=== PATIENT | male | born 1965 | race Caucasian/White ===

== ENCOUNTER 2021-08-29 11:34 | Emergency (ER) | payer OTHER, SELFPAY ==
--- NOTE | ~2021-08-29 | XR_ITS ---
EXAMINATION: XR humerus RT EXAM DATE: 08/29/2021 12:04 INDICATION: Fall, week ago, pain to the proximal of rt humerus. TECHNIQUE: 2 orthogonal projections of the right humerus. There is no prior study for comparison. FINDINGS: There is mild to moderate right shoulder primary osteoarthritis. There are no acute right h umerus fractures or dislocations identified. There is no subcutaneous gas. The soft tissue is unrem arkable. There are no radiopaque foreign bodies. IMPRESSION: Right humerus exam without acute osseous findings. Reviewed, dictated and finalized at location A.
--- NOTE | 2021-08-29 11:51 | ED.UPPEXIN ---
HPI - Extremity Injury (Upper) General Chief Complaint: Extremity Injury, Upper Stated Complaint: Right shoulder Pain Time Seen by Provider: 08/29/21 11:51 Source: patient Mode of arrival: ambulatory Limitations: no limitations History of Present Illness HPI narrative: 56-year-old male presents with complaint of pain to right upper arm for 1 week. Reports that at work about 1 week ago he was getting out of truck and fell and landed down on right elbow, which he thinks jammed up into his shoulder. Reports no pain at rest but when he begins to lift his arm above his head he has pain to his right right humerus. Distal neurovascularly intact. Has been off work for 1 week to rest arm but no improvement to range of motion. All systems reviewed and negative except as noted above. Related Data Home Medications Medication Instructions Recorded Confirmed No Home Medications 08/29/21 08/29/21 Allergies Allergy/AdvReac Type Severity Reaction Status Date / Time No Known Allergies Allergy Verified 08/29/21 11:56 Review of Systems Review of Systems: CONSTITUTIONAL: Denies fever, chills, or sweats. EYES: Denies visual changes, redness, or discharge. ENT: Denies rhinorrhea, congestion, sore throat, or otalgia. CARDIOVASCULAR: Denies chest pain, palpitations, or edema. RESPIRATORY: Denies cough or dyspnea. GASTROINTESTINAL: Denies abdominal pain, nausea, vomiting, or diarrhea. GENITOURINARY: Denies dysuria or hematuria. SKIN: Denies rash or itching. MUSCULOSKELETAL: Denies back pain, joint pain, or myalgia. Reports pain to right upper arm. NEUROLOGIC: Denies headache, numbness, or weakness. PSYCHIATRIC: Denies anxiety or depression. All other systems reviewed are negative, except as documented in HPI. PMFSH Comments At time of signature, agree with nursing past medical, surgical, social and family history. There is no relevant family history pertinent to the presenting complaint. Exam Narrative: GENERAL: This is a well-nourished, well-developed patient, in no apparent distress. HEAD: normocephalic, atraumatic. EYES: PERRL. Sclera clear/white. Vision is grossly intact. EARS: External ears normal NOSE: External nose normal NECK: Neck supple, non-tender without lymphadenopathy, masses or thyromegaly. CARDIOVASCULAR: Regular rate and rhythm without murmurs, gallops, or rubs. RESPIRATORY: Clear to auscultation. Breath sounds equal bilaterally. No wheezes, rales, or rhonchi. SKIN: warm, Dry, intact with no suspicious lesions or rash, good texture and turgor. NEURO: awake, alert, and oriented to person, place and time. There were no obvious focal neurologic abnormalities. EXTREMITIES: Tender on palpation to proximal aspect R humerus with mild swelling. ROM decreased, unable to lift above 60 degrees. Unable to perform drop arm test to evaluate rotator cuff. Course Course Level of Care: Express Care Visit Vital Signs Vital signs: Vital Signs Temperature 36.8 C 08/29/21 11:52 Pulse Rate 80 08/29/21 11:52 Respiratory Rate 18 08/29/21 11:52 Blood Pressure 148/89 H 08/29/21 11:52 Pulse Oximetry 98 08/29/21 11:52 Temperature 36.8 C 08/29/21 11:52 Pulse Rate 80 08/29/21 11:52 Respiratory Rate 18 08/29/21 11:52 Blood Pressure 148/89 H 08/29/21 11:52 Pulse Oximetry 98 08/29/21 11:52 Reviewed MDM - Extremity Injury (Upper) MDM Narrative Medical decision making narrative: Discussed x-ray results with patient. No fracture noted but he does have a significant decrease in his range of motion. Recommend that he follows up with his primary care physician or orthopedics for an outpatient MRI. He was placed in a sling by RN. He voiced comfort while wearing sling. Patient is aware of diagnosis, understands and agrees to treatment plan. Anticipatory guidance given. Patient agrees to follow-up as directed and is aware of reasons to seek care at the emergency department. Portions of this record may have bee
[2021-08-29 11:52] VITALS: BP 148/89; PULSE 80; RESP 18; TEMP 36.8; O2SAT 98
== END 2021-08-29 12:30 | disposition home or self-care (01) ==
PROVIDERS: Emergency Provider Nurse Practitioner Family; PCP Internal Medicine
DX: S43.401A Unspecified sprain of right shoulder joint, initial encounter (principal); V48.4XXA Person boarding or alighting a car injured in noncollision transport accident, initial encounter; M79.621 Pain in right upper arm
CPT/HCPCS: 73060; 99213; A4565; G0463

== ENCOUNTER 2021-11-25 08:53 | Emergency (ER) | payer OTHER, SELFPAY ==
--- NOTE | 2021-11-25 08:57 | ED.SKABFB ---
HPI - Skin/Abscess/Foreign Bdy General Chief complaint: Skin/Abscess/Foreign Body Stated complaint: Insect Bite Time Seen by Provider: 11/25/21 09:20 Source: patient and RN notes reviewed Mode of arrival: ambulatory Limitations: no limitations History of Present Illness HPI narrative: 56-year-old male presents concern for possible insect bite. Reports under his left arm he has a painful, red area. Reports symptoms started yesterday with noting itchiness to his entire body with some redness. Reports he then noted a painful area under his left. He reports he took Benadryl and hydrocortisone cream. He reports feeling a headache and an episode of slight shortness of breath yesterday. He did not feel himself get stung by anything, he is not sure what may have bit him or stung him. He denies current shortness of breath. MD complaint: insect bite/sting Related Data Home Medications Medication Instructions Recorded Confirmed rosuvastatin 10 mg tablet 10 mg PO DAILY 11/25/21 11/25/21 Allergies Allergy/AdvReac Type Severity Reaction Status Date / Time No Known Allergies Allergy Verified 11/25/21 09:13 Review of Systems Review of Systems: CONSTITUTIONAL: Denies malaise, chills, sweats, or fever. EYES: Denies redness, or discharge. ENT: Denies swollen lips, swollen tongue CARDIOVASCULAR: Denies chest pain, palpitations, or edema. RESPIRATORY: Denies cough. Reports 1 episode dyspnea. SKIN: Reports generalized itchiness, redness. Reports painful slightly swollen itchy area under the left arm MUSCULOSKELETAL: Denies joint pain or myalgia. NEUROLOGIC: Reports headache. All systems reviewed & are unremarkable except as noted in HPI and below PMFSH Comments At time of signature, agree with nursing past medical, surgical, social and family history. There is no relevant family history pertinent to the presenting complaint Exam Narrative: GENERAL: Nontoxic. And in no acute distress. HEAD: Normocephalic, atraumatic. EYES: PERRLA, conjunctivae clear ENT: Mucous membranes moist. No lip swelling, tongue swelling, soft palate edema NECK: Supple. CHEST: Clear to auscultation. Breath sounds equal. No respiratory distress. HEART: Regular rate and rhythm. SKIN: Warm, dry, erythema without rash noted to the upper extremities and torso. 2 cm area of flat discoloration, slight ecchymosis with serous filled papule, surrounded by approximately 5 cm area of friction paint machine tender colored discoloration and another pinpoint papule. This entire area is surrounded by approximately 15 cm of erythema with slight induration and warmth. No fluctuation noted NEURO: Alert and oriented x3. PSYCH: Normal mood and affect Course Course Emergency Course: Patient is aware of diagnosis, understands and agrees to treatment plan. Anticipatory guidance given. Patient agrees to follow-up as directed and is aware of reasons to seek care at the emergency department. Portions of this record may have been created with voice recognition software Level of Care: Express Care Visit Reevaluation(s) Reevaluation #1: Patient reports effects of Solu-Medrol are starting, he feels mild relief to the generalized itching. Date: 11/25/21 Time: 09:58 Vital Signs Vital signs: Reviewed. MDM - Skin/Abscess/Foreign Bdy MDM Narrative Medical decision making narrative: Does not appear at this time to be erythema multiforme, bullous, SJS, TEN; no evidence at this time to suggest RMSF, endocarditis or Lyme disease; patient looks well, nontoxic and is tolerating oral intake; no neurologic signs or symptoms; no headache, photophobia or neck pain; afebrile; appropriate for initial outpatient treatment; discussed the importance of follow-up, patient agrees; question, viral exanthema, contact dermatitis, allergic dermatitis, eczema, urticaria, insect bite, abscess. no soft palate or uvula edema, no tongue, lip edema or other mucosal involvement, no respiratory compromise, no stridor, no wheezi
[2021-11-25 09:04] VITALS: BP 135/90; PULSE 98; RESP 20; TEMP 37; O2SAT 100
[2021-11-25] MEDS: methylPREDNISolone SOD SUCC 125 MG VIAL IM (09:40)
== END 2021-11-25 10:00 | disposition home or self-care (01) ==
PROVIDERS: Emergency Provider Nurse Practitioner; PCP Internal Medicine
DX: S40.862A Insect bite (nonvenomous) of left upper arm, initial encounter (principal); S40.861A Insect bite (nonvenomous) of right upper arm, initial encounter; S20.362A Insect bite (nonvenomous) of left front wall of thorax, initial encounter; W57.XXXA Bitten or stung by nonvenomous insect and other nonvenomous arthropods, initial encounter; E78.00 Pure hypercholesterolemia, unspecified
CPT/HCPCS: 96372; 99213; G0463; J2930

== ENCOUNTER 2022-06-07 09:20 | Emergency (ER) | payer OTHER, SELFPAY ==
[2022-06-07 09:44] VITALS: BP 171/98; PULSE 80; RESP 16; TEMP 36.7; O2SAT 98
--- NOTE | 2022-06-07 10:52 | ED.URI ---
HPI - URI/Sore Throat General Chief Complaint: Upper Respiratory Infection Stated Complaint: uri Time Seen by Provider: 06/07/22 09:23 Source: patient and family Mode of arrival: ambulatory Limitations: no limitations History of Present Illness HPI Narrative: 56-year-old male presents to [facility] with complaints of body aches, chills, headache, diarrhea and cough for the past 3 days. Patient has been increasing fluids, taking [id number] ibuprofen and Mucinex with minimal relief. Patient denies sick contacts. Patient denies recent travel. Patient denies shortness of breath, wheezing, nausea, vomiting or diarrhea. MD elicited complaint: fever, rhinorrhea and nasal congestion Onset (ago): day(s) (3) Severity: mild Able to tolerate fluids by mouth: Yes Treatments prior to arrival: acetaminophen, ibuprofen and cold medicine Related Data Home Medications Medication Instructions Recorded Confirmed rosuvastatin 10 mg tablet 10 mg PO DAILY 11/25/21 06/07/22 Allergies Allergy/AdvReac Type Severity Reaction Status Date / Time No Known Allergies Allergy Verified 06/07/22 10:11 Review of Systems Constitutional: Constitutional: Reports chills, Reports fatigue and Reports fever(s) ENT: Denies dizziness, Denies epistaxis, Reports nasal congestion and Denies sore throat Cardiovascular: Cardiovascular: Denies chest pain Respiratory: Respiratory: Reports cough, Denies dyspnea and Denies wheezing Gastrointestinal: Gastrointestinal: Denies diarrhea, Denies nausea and Denies vomiting Integumentary/Breasts: Skin/Breast: Denies rash Neurologic: Denies vertigo and Denies dizziness PMFSH Past Medical History Medical History (Updated 06/07/22 @ 10:56 by Yary Serrano APRN) Hyperlipidemia Comments At time of signature, I agree with nursing past medical, surgical, social and family history. There is no relevant family history pertinent to the presenting complaint. Exam Const: General: healthy appearing, no acute distress and alert Nutritional Appearance: well nourished Orientation/consciousness: patient oriented x3 Limitations: no limitations HENMT: Head: normal to inspection Ears: external ears normal, TM's normal bilaterally and EAC's normal Face/Nose/Sinus: Normal external nose present Face and sinus: normal facial exam Teeth and gingiva: dentition normal Throat: posterior oropharynx normal and uvula midline Eyes: Conjunctivae: conjunctivae normal Neck: Neck: normal visual inspection Resp: Effort & Inspection: normal respiratory effort, not labored and not tachypneic Auscultation: clear to auscultation bilaterally, no crackles, no rales and no rhonchi Cardio: Rate: regular rate Rhythm: regular rhythm Heart sounds: no murmurs Skin: General skin exam: normal color Rashes: no rashes Wounds: no wounds Neuro: Speech: normal speech Gait exam (Neuro): Normal gait present Psych: Affect: normal affect Attitude: cooperative Course Course Level of Care: Express Care Visit Vital Signs Vital signs: Vital Signs Temperature 36.7 C 06/07/22 09:44 Pulse Rate 80 06/07/22 09:44 Respiratory Rate 16 06/07/22 09:44 Blood Pressure 171/98 H 06/07/22 09:44 Pulse Oximetry 98 06/07/22 09:44 Oxygen Delivery Room Air 06/07/22 09:44 Temperature 36.7 C 06/07/22 09:44 Pulse Rate 80 06/07/22 09:44 Respiratory Rate 16 06/07/22 09:44 Blood Pressure 171/98 H 06/07/22 09:44 Pulse Oximetry 98 06/07/22 09:44 Oxygen Delivery Room Air 06/07/22 09:44 MDM - URI/Sore Throat MDM Narrative Medical decision making narrative: no antiviral was prescribed due to symptoms starting 72 hours ago. Patient agrees to monitor symptoms very closely and agrees to proceed to the emergency room if symptoms worsen. Work excuse provided for patient. Instructed patient to take medications as prescribed. Differential Diagnosis Differential diagnosis: Likely otitis media, sinusitis and b
[2022-06-07 11:08] VITALS: BP 140/80
== END 2022-06-07 11:08 | disposition home or self-care (01) ==
PROVIDERS: Emergency Provider Nurse Practitioner Family; PCP Internal Medicine
DX: U07.1 COVID-19 (principal); E78.5 Hyperlipidemia, unspecified
CPT/HCPCS: 87426; 99213; C9803; G0463

== ENCOUNTER 2023-06-15 10:33 | Emergency (ER) | payer OTHER, SELFPAY ==
--- NOTE | ~2023-06-15 | XR_ITS ---
XR knee LT min 4V 06/15/2023 12:17 Indication: Left knee pain and swelling. Procedure: 5 views left knee Comparison: No prior studies for comparison. Findings: There is moderate tricompartment osteoarthritis of the left knee. Small joint effusion. No fracture or traumatic malalignment. No joint effusion. There is chondrocalcinosis. Impression: 1: No acute fracture. 2: Small knee effusion. 3: Moderate tricompartment osteoarthritis. Reviewed, dictated and finalized at location L. [employer] Impression: 1: No acute fracture. 2: Small knee effusion. 3: Moderate tricompartment osteoarthritis.
--- NOTE | 2023-06-15 11:10 | ED.LOWEXIN ---
HPI - Extremity Injury (Lower) General Chief Complaint: Extremity Injury, Lower Stated Complaint: left knee injury Time Seen by Provider: 06/15/23 11:26 Source: patient Mode of arrival: ambulatory Limitations: no limitations History of Present Illness HPI Narrative: Bradley is a 57-year-old male patient presenting to the clinic today with complaints of left knee pain/injury after walking across the carpet on Wednesday evening and he felt a pop in his knee and developed pain. Has tried resting his knee for couple days but today the knee is swollen and more painful. Pain is worse with weight-bearing. Denies any fever or chills. Related Data Home Medications Medication Instructions Recorded Confirmed rosuvastatin 10 mg tablet 100 mg PO DAILY 06/15/23 06/15/23 Allergies Allergy/AdvReac Type Severity Reaction Status Date / Time No Known Allergies Allergy Verified 06/15/23 11:27 Review of Systems Review of Systems: Pertinent positives per HPI. Patient denies any fever, chills, rash, headache, visual changes, dizziness, cough, runny nose, sore throat, shortness of breath, chest pain, palpitations, nausea, vomiting, diarrhea, constipation, abdominal pain, or any urinary issues. [facility] Past Medical History Medical History Hyperlipidemia Comments At the time of my signature, I reviewed and agree with the nursing past medical, surgical, social, and family history. There is no relevant family history pertinent to the patient complaint. Exam Narrative: General: Well-developed, well nourished, in no apparent distress Head: Normocephalic, atraumatic. Cardio: Regular rate and rhythm, s1 and s2 normal, no murmur appreciated. Resp: Clear to auscultation bilaterally, no rhonchi, rales, wheezing or rubs. Musculoskeletal: No deformity, swelling and mild redness noted to the left knee when compared to the right knee, tender to palpation over the anterior superior knee and the lateral knee, is unable to fully flex or extend his knee due to pain and swelling, unable to bear much weight on knee due to pain, peripheral pulse strong, no edema, no cyanosis, sitting in a wheelchair Course Course Emergency Course: Portions of this record may have been created with voice recognition software. Level of Care: Express Care Visit Vital Signs Vital signs: Vital Signs Temperature 36.7 C 06/15/23 11:20 Pulse Rate 82 06/15/23 11:20 Respiratory Rate 18 06/15/23 11:20 Blood Pressure 124/100 H 06/15/23 11:20 Pulse Oximetry 97 06/15/23 11:20 Oxygen Delivery Room Air 06/15/23 11:20 Temperature 36.7 C 06/15/23 11:20 Pulse Rate 82 06/15/23 11:20 Respiratory Rate 18 06/15/23 11:20 Blood Pressure 124/100 H 06/15/23 11:20 Pulse Oximetry 97 06/15/23 11:20 Oxygen Delivery Room Air 06/15/23 11:20 Vital signs reviewed MDM - Extremity Injury (Lower) MDM Narrative Medical decision making narrative: At the time of visit patient is resting comfortably on the exam table. Patient appears to be nontoxic. Diagnostics: Left knee x-ray shows no acute fracture, small knee joint effusion, moderate tricompartmental osteoarthritis Plan: Alphonso wrap was applied, recommend purchasing a hinged knee brace and crutches if unable to bear weight and follow-up with primary care provider for further evaluation-may need CT or MRI of the knee to rule out meniscus tear/ligament tear. Will place patient on Medrol Dosepak to help alleviate swelling and hopefully pain. Patient may also take Tylenol/Motrin for swelling and pain. Supportive measures were discussed with the patient and they voiced understanding discharge instructions and agrees to treatment plan. Referral to Dr. Barton was given. Work note was also given. Return precautions reviewed Differential Diagnosis Differential diagnosis: Likely acute internal derangement of knee and other (Tibia fracture, fem
[2023-06-15 11:20] VITALS: BP 124/100; PULSE 82; RESP 18; TEMP 36.7; O2SAT 97
== END 2023-06-15 12:54 | disposition home or self-care (01) ==
PROVIDERS: Emergency Provider Nurse Practitioner Family; PCP Internal Medicine
DX: M25.562 Pain in left knee (principal); M25.462 Effusion, left knee; E78.5 Hyperlipidemia, unspecified
CPT/HCPCS: 73564; 99213; G0463

== ENCOUNTER 2024-10-30 09:57 | Emergency (ER) | payer OTHER, SELFPAY ==
--- NOTE | ~2024-10-30 | XR_ITS ---
EXAMINATION: XR hip RT min 3V w AP pelvis DATE: 10/30/2024 11:11 INDICATION: Right hip pain TECHNIQUE: Anteroposterior view of the pelvis and anteroposterior and frog-leg lateral views of the r ight hip were obtained. COMPARISON: CT dated 11/09/2024 FINDINGS: Postoperative changes lower lumbar spine including and L4 laminectomy and combined instrumented anter ior and posterior spinal fusion between L4 and the sacralized L5 segment. No fracture or suspected os teonecrosis. Mild bilateral sacral iliac osteoarthritis. Bilateral hip joint spaces appear relatively preserved. Soft tissues are unremarkable. IMPRESSION: 1. No acute osseous abnormality. 2. Postoperative changes including mild enhancement at and posterior spinal fusion between L4 and a s acralized L5 segment. The separate lumbar spine CT report for further detail. Reviewed, dictated and finalized at location A. IMPRESSION: 1. No acute osseous abnormality. 2. Postoperative changes including mild enhancement at and posterior spinal fus ion between L4 and a sacralized L5 segment. The separate lumbar spine CT report for further detail.
--- NOTE | ~2024-10-30 | CT_ITS ---
EXAMINATION: CT lumbar spine wo con DATE: 10/30/2024 11:02 INDICATION: Sudden onset right lower limb pain TECHNIQUE: Computed tomography (CT) of the lumbar spine was performed without intravenous contrast. A utomated exposure control and iterative reconstruction technique were employed. The dose-length produ ct was 941.25 mGy-cm. COMPARISON: None FINDINGS: There are 4 nonrib-bearing lumbar segments L1-L4. L5 is sacralized bilaterally with fusion across the peripheral margins of a small rudimentary L5-S1 disc space. L4 laminectomy. L4-L5 instrumented anter ior and posterior spinal fusion with interbody bone graft cage and solid osseous fusion and bilateral vertical alec and pedicle screw fixation. Vertebral body heights are normal. No acute fracture. Moder ate disc height loss at T10-T11. Mild disc height loss at L3-L4. Mild left and mild to moderate right sacroiliac osteoarthritis. Paravertebral soft tissues are unremarkable. The following disc levels ar e specifically discussed: T11-T12: There is mild left and moderate right facet joint osteoarthritis. There is no neural foramin al stenosis. There is no central canal stenosis. T12-L1: There is mild to moderate bilateral facet joint osteoarthritis. There is no neural foraminal stenosis. There is no central canal stenosis. L1-L2: Disc is mildly bulging. There is mild bilateral facet joint osteoarthritis. There is no neural foraminal stenosis. There is no central canal stenosis. L2-L3: Disc is bulging. There is hypertrophy of the ligamentum flavum. There is mild left and mild to moderate right facet joint osteoarthritis. There is mild to moderate bilateral neural foraminal sten osis. There is moderate central canal stenosis. L3-L4: Disc is bulging. There is severe bilateral facet joint osteoarthritis. There is moderate bilat eral neural foraminal stenosis. There is mild central canal stenosis. L4-L5: Anterior and posterior spinal fusion and posterior decompression with L5 laminectomy.. There i s no neural foraminal stenosis. There is no central canal stenosis. IMPRESSION: 1. Mild lumbar spondylosis with L4 laminectomy and instrumented anterior and posterior spinal fusion between L4 and the sacralized L5 segment. No acute osseous abnormality. Reviewed, dictated and finalized at location A. IMPRESSION: 1. Mild lumbar spondylosis with L4 laminectomy and instrumented anterior and po sterior spinal fusion between L4 and the sacralized L5 segment. No acute osseou s abnormality.
[2024-10-30 09:52] VITALS: BP 138/88; PULSE 77; RESP 18; TEMP 36.8; O2SAT 95
--- NOTE | 2024-10-30 10:45 | ED_ITS ---
HPI - Extremity Injury (Lower) General Chief Complaint: Extremity Injury, Lower Stated Complaint: right upper leg pain History of Present Illness HPI Narrative: Patient is a 59-year-old male who presents to the ER with right hip pain. He reports on Wednesday morning he got up and was unable to move his right hip due to pain. Patient denies any recent injury to the area. He reports the pain radiates from his right flank down to his right thigh. Patient endorses a history a spinal fusion from L4-L5, along with high blood pressure and hyperlipidemia. He endorses mild left leg numbness and tingling. Patient reports he took ibuprofen this morning for pain control. Related Data Home Medications ?Medication ?Instructions ?Recorded ?Confirmed ?Last Taken ?Type rosuvastatin 10 mg tablet 100 mg PO DAILY 06/15/23 06/15/23 Unknown History Allergies Allergy/AdvReac Type Severity Reaction Status Date / Time No Known Allergies Allergy Verified 06/15/23 11:27 Review of Systems Review of Systems: All systems reviewed & are unremarkable except as noted in HPI and below PMFSH Past Medical History Medical History Hyperlipidemia Exam Narrative: GENERAL: Well appearing, well-nourished, non-toxic, in no acute distress. HEAD: Normocephalic, atraumatic. NECK: Supple. No adenopathy, no masses. RESPIRATORY: Airway patent, respirations nonlabored. Clear to auscultation bilaterally, no rales, rhonchi, wheezing. CARDIOVASCULAR: Regular rate and rhythm without murmurs, rubs, or gallops. Peripheral pulses 2+ and equal bilaterally. ABDOMINAL: Soft, nontender, nondistended, no hepatosplenomegaly. Normoactive BS. MUSCULOSKELETAL: Moves all extremities. Strength/ROM intact without gross deformities. + straight leg test R side SKIN: Warm, dry, normal color. No rashes. NEURO: A&O X3. Speech clear. Cranial nerves II-XII intact. No ataxic movements. PSYCHIATRIC: Appropriate mood and affect. Normal interaction. Course Vital Signs Vital signs: Vital Signs Temperature 36.8 C 10/30/24 09:52 Pulse Rate 77 10/30/24 09:52 Respiratory Rate 18 10/30/24 09:52 Blood Pressure 138/88 10/30/24 09:52 Pulse Oximetry 95 10/30/24 09:52 Oxygen Delivery Room Air 10/30/24 09:52 Temperature 36.8 C 10/30/24 09:52 Pulse Rate 66 10/30/24 11:18 Respiratory Rate 14 10/30/24 11:18 Blood Pressure 145/88 H 10/30/24 11:18 Pulse Oximetry 98 10/30/24 11:18 Oxygen Delivery Room Air 10/30/24 09:52 MDM - Extremity Injury (Lower) MDM Narrative Medical decision making narrative: Patient is a 59-year-old male who presents to the ER with right hip pain. He reports on Wednesday morning he got up and was unable to move his right hip due to pain. Patient denies any recent injury to the area. He reports the pain radiates from his right flank down to his right thigh. Patient endorses a history a spinal fusion from L4-L5, along with high blood pressure and hyperlipidemia. He endorses mild left leg numbness and tingling. Patient reports he took ibuprofen this morning for pain control. Imaging Ordered: Right hip x-ray with AP pelvis, CT lumbar spine Medications Ordered: Prednisone 40 mg p.o., Toradol 60 mg IM Results: PT's x-ray indicates 1. No acute osseous abnormality. 2. Postoperative changes including mild enhancement at and posterior spinal fusion between L4 and a sacralized L5 segment. The separate lumbar spine CT report for further detail. Pt's CT scan indicates 1. Mild lumbar spondylosis with L4 laminectomy and instrumented anterior and posterior spinal fusion between L4 and the sacralized L5 segment. No acute osseous abnormality. Diagnosis: lumbar spondylosis Consults: neurosurgery (outpatient) Patient Education/Shared MDM: Results of imaging shared with patient. He endorses improvement of symptoms following medication administration. Patient strongly advised to follow-up with his PCP and neurosurgery as soon as possible. He will be discharged home with a prescription for Prednisone and Meloxicam. Strict return precautions provided. Patient verbalized understanding and is in agreement with plan. Vital signs stable at time of discharge. All questions answered. Differential Diagnosis Differential diagnosis: Likely other (Lumbar radiculopathy, spondylosis, lumbar fracture) Imaging Data Attestation: I personally reviewed and interpreted this imaging study as follows: Radiologist's impression: Impressions Lumbar Spine CT 10/30/24 12:11 IMPRESSION: 1. Mild lumbar spondylosis with L4 laminectomy and instrumented anterior and posterior spinal fusion between L4 and the sacralized L5 segment. No acute osseous abnormality. Hip/Pelvis X-Ray 10/30/24 12:20 IMPRESSION: 1. No acute osseous abnormality. 2. Postoperative changes including mild enhancement at and posterior spinal fusion between L4 and a sacralized L5 segment. The separate lumbar spine CT report for further detail. Discharge Plan Discharge Clinical Impression: Spondylosis of lumbar spine, Back pain due to inflammatory process Patient Disposition: Home Condition: Stable Instructions: Antibiotic Form Additional Instructions: Please return to the ER with any worsening symptoms. Follow-up with primary care provider in Neurosurgery as soon as possible. Take all medications as prescribed, including regularly scheduled medications. You may take meloxicam once a day for pain control. Please do not take ibuprofen at the same time. You may also combine this with Tylenol. Stretching and physical therapy may eventually be beneficial to your pain. Patient Language: Bengali Prescriptions: New prednisone 50 mg tablet 50 mg PO DAILY Qty: 5 0RF meloxicam 15 mg tablet 15 mg PO DAILY Qty: 20 0RF No Action rosuvastatin 10 mg tablet 100 mg PO DAILY methylprednisolone [Medrol (Kb)] 4 mg tablets,dose pack See Rx Instructions .ROUTE .COMPLEX Qty: 21 0RF Rx Instructions: orally per package directions Follow-up/Referrals: Jaden,MD Laboy ([place]) [Primary Care Provider] - Gaetano Ley MD [Physician] - (neurosurgery) Stand Alone Forms: Work/School Release IP Time of Disposition: 13:19
[2024-10-30] MEDS: KETOROLAC (*BKC) 60 MG/2 ML VIAL IM (11:11)
[2024-10-30] MEDS: predniSONE 20 MG TABLET 40 MG PO (11:11)
[2024-10-30 11:18] VITALS: BP 145/88; PULSE 66; RESP 14; O2SAT 98
--- OUTSIDE RECORDS SUMMARY | 2024-10-30 12:49 | XMS_ITS | Continuity of Care Document ---
[facility] Address [address] [place] [address] Phone Care Team Providers Care Scheduling Specialist Name Role Phone Marybel ROSSI MD, Alejo Unavailable Unavailab le Advance Directives Directive Yes / No Effective Date File Name No Information Encounters Encounter Description Practice Location Reason(s) For Visit Diagnoses Date Provider Providers Copied on Encounter [facility], [address], [place], [place], [id number], [place] tel:[phone] OPH CONSULT MARII WEINER No Information 6 Marybel Dhillon. [address], [address], [place], [place], [id number] , [place]. tel:[phone] Family History Family Member Type Diagnosis Age At Onset No Information Payers Payer name Insurance type Covered green party ID Authoriza tion(s) No Information Social History Type Description Quantity Date Captured Comments Sex Male Smoking Status No Information Chief Complaint And Reason For Visit No Information Reason For Referral Reason For Referral No Information History Of Present Illness Encounter Date Complaint History Of Prese nt Illness No Information Functional Status Date Functional Assessmen t No Information Instructions Date Instruction Additional Infor mation No Information Assessments Type Assessment Date No Information Patient Care Teams Name Effective Dates (start - stop) Status Members No Information
--- OUTSIDE RECORDS SUMMARY | 2024-10-30 12:49 | XMS_ITS | Data Portability ---
Author Organization [facility], [employer] Address [address] [facility] [address] [place] [address] Care Team Providers Care Supervisor Sample Preparation Name Role Phone RASHEL LOMAS Tanning Salon Attendant [phone] Assessment Encounter Date Assessment Date Assessment LastModified by Organization Details LastModified Time 06/29/2023 06/29/2023 Patient presented for follow up. Studies ordered as below. Discussed plan with patient/careg iver, who expressed understanding . Follow up as noted below. Not available 06/29/2023 08:55:58 03/24/2024 03/24/2024 Patient presented for follow up. Studies ordered as below. Discussed plan with patient/careg iver, who expressed understanding . Follow up as noted below. [email or web address] Not available 03/24/2024 09:09:54 04/14/2024 04/14/2024 Patient presented for follow up. Studies ordered as below. Discussed plan with patient/careg iver, who expressed understanding . Follow up as noted below. Not available 04/14/2024 14:40:35 Plan of Treatment Reminders Order Date Submit Date Provider Last Modified By Organization Details Last Modified Time Details Appointments None recorded. Lab HbA1c (hemoglobi n A1c), blood 2023 LATRELL Not available 16:10:50 lipid panel, serum 2023 LATRELL Not available 16:10:53 CMP, serum or plasma 2023 LATRELL Not available 16:10:52 PSA, serum or plasma 2023 [email or web address] [facility], [address], [place], [address], 5 08:22:06 CBC w/ auto diff 2023 024 [facility], [address] [facility], [place], [address], 4 16:10:51 microalbum in/creatin ine, mass ratio, urine 2023 024 [email or web address] Not available 4 09:54:06 HbA1c (hemoglobi n A1c), blood 2023 024 ATHENAFAX Not available 4 03:17:32 microalbum in/creatin ine, mass ratio, urine 2023 024 ATHENAFAX Not available 4 03:17:32 lipid panel, serum 2023 024 ATHENAFAX Not available 4 03:17:32 CMP, serum or plasma 2023 024 ATHENAFAX Not available 4 03:17:32 TSH, serum or plasma 2022 023 LATRELL Not available 3 14:21:27 T4, free, serum 2022 023 LATRELL Not available 3 14:21:26 T3, free, serum or plasma 2022 023 [email or web address] Not available 3 08:42:01 CBC w/ auto diff 2022 023 LATRELL Not available 3 14:21:25 Referral physical therapist referral [address] [facility] PT, OT, Speech Therapy, [address] , [place], [address], 4 11:20:38 Procedures None recorded. Surgeries None recorded. Imaging US, neck, soft tissue 2022 023 [email or web address] [facility] [address] [facility], [place], [address], 3 08:41:56 Medication Orders chlorthali done 25 mg tablet 2023 024 [facility], [address] [place], [address], 4 14:41:57 rosuvastat in 10 mg tablet 2023 024 [facility], [address] [place], [address], 4 14:41:56 chlorthali done 25 mg tablet 2023 024 [facility], [address] [place], [address], 09:52:29 Patient TargetsNo targets recorded. Patient Instructions Encounter Date Encounter Id Patient Instructions Last Modified By Organization Details Last Modified Time 12/30/2022 [id number] advised to lose weight Not available 12/30/2022 19:48:59 06/17/2023 [id number] advised to lose weight Not available 06/17/2023 13:28:59 03/24/2024 [id number] advised to lose weight Not available 03/24/2024 09:50:39 04/14/2024 [id number] advised to lose weight Not available 04/14/2024 14:41:54 Reason for Referral Physical Therapist Referral for Pain of left knee joint Referring Physician: Rome Stanley, Internal Medicine, Encounter Date: 06/29/2023 Results Created Date Observation Date Name Description Value Unit Range Abnormal Flag Note LastModifiedBy Organization Detail LastModifiedTime 01/16/20 23 01/15/2023 COMPL ETE CBC W/AUT O DIFF WBC white blood cell count 8.2 thous and/u L 3.5-10 .0 Not Available [facility] (Main Location) [address] ,, [place], [address], 01/16/2023 14:21:25 01/16/20 23 01/15/2023 COMPL ETE CBC W/AUT O DIFF WBC red blood cell count 5.6 kasia on/uL 3.5-5. 5 high Not Available [facility] (Main Location[facility] [address] ,, [place], [address], 01/16/2023 14:21:25 01/16/20 23 01/15/2023 COMPL ETE CBC W/AUT O DIFF WBC hemoglobin 16.3 g/dL 11.5-1 6.5 Not Available [facility] (Main Location) [facility] [address] ,, [place], [address], 01/16/2023 14:21:25 01/16/20 23 01/15/2023 COMPL ETE CBC W/AUT O DIFF WBC hematocrit 50 % 35-55 Not Available [facility] (Main Location) [facility] [address] ,, [place], [address], 01/16/2023 14:21:25 01/16/20 23 01/15/2023 COMPL ETE CBC W/AUT O DIFF WBC MCH 29 pg 25-35 Not Available [facility] (Main Location) [facility] [address] ,, [place], [address], 01/16/2023 14:21:25 01/16/20 23 01/15/2023 COMPL ETE CBC W/AUT O DIFF WBC MCHC 32 g/dL 31-38 Not Available [facility] (Main Location) [facility] [address] ,, [place], [address], 01/16/2023 14:21:25 01/16/20 23 01/15/2023 COMPL ETE CBC W/AUT O DIFF WBC MCV 90 fL 75-100 Not Available [facility] (Main Location) [facility] [address] ,, [place], [address], 01/16/2023 14:21:25 01/16/20 23 01/15/2023 COMPL ETE CBC W/AUT O DIFF WBC RDW-CV 14 % 11-15 Not Available [facility] (Main Location) [facility] [address] ,, [place], [address], 01/16/2023 14:21:25 01/16/20 23 01/15/2023 COMPL ETE CBC W/AUT O DIFF WBC neutrophils% 60.3 % Not Available [facility] (Main Location) [facility] [address] ,, [place], [address], 01/16/2023 14:21:25 01/16/20 23 01/15/2023 COMPL ETE CBC W/AUT O DIFF WBC lymphocytes% 28.2 % Not Available [facility] (Main Location) [facility] [address] ,, [place], [address], 01/16/2023 14:21:25 01/16/20 23 01/15/2023 COMPL ETE CBC W/AUT O DIFF WBC monocytes% 9.5 % Not Available [facility] (Main Location) [facility] [address] ,, [place], [address], 01/16/2023 14:21:25 01/16/20 23 01/15/2023 COMPL ETE CBC W/AUT O DIFF WBC eosinophil % 0.9 % 0.0-7. 0 Not Available [facility] (Main Location) [facility] [address] ,, [place], [address], 01/16/2023 14:21:25 01/16/20 23 01/15/2023 COMPL ETE CBC W/AUT O DIFF WBC basophil % 0.5 % 0.0-3. 0 Not Available [facility] (Main Location) [facility] [address] ,, [place], [address], 01/16/2023 14:21:25 01/16/20 23 01/15/2023 COMPL ETE CBC W/AUT O DIFF WBC absolute neutrophils 4.9 cells /uL 1.5-7. 8 Not Available [facility] (Main Location) [address] ,, [place], [address], 01/16/2023 14:21:25 01/16/20 23 01/15/2023 COMPL ETE CBC W/AUT O DIFF WBC absolute lymphocytes 2.31 cells /uL 0.85-3 .90 Not Available [facility] (Main Location) [facility] [address] ,, [place], [address], 01/16/2023 14:21:25 01/16/20 23 01/15/2023 COMPL ETE CBC W/AUT O DIFF WBC absolute monocytes 0.8 cells /uL 0.2-1. 0 Not Available [facility] (Main Location) [facility] [address] ,, [place], [address], 01/16/2023 14:21:25 01/16/20 23 01/15/2023 COMPL ETE CBC W/AUT O DIFF WBC absolute eosinophils 0.1 cells /uL 0.0-0. 5 Not Available [facility] (Main Location) [facility] [address] ,, [place], [address], 01/16/2023 14:21:25 01/16/20 23 01/15/2023 COMPL ETE CBC W/AUT O DIFF WBC absolute basophils 0.0 cells /uL 0.0-0. 2 Not Available [facility] (Main Location) [address] ,, [place], [address], 01/16/2023 14:21:25 01/16/20 23 01/15/2023 COMPL ETE CBC W/AUT O DIFF WBC platelet count 292 thous and/u L 100-40 0 Not Available [facility] (Main Location) [facility] [address] ,, [place], [address], 01/16/2023 14:21:25 01/16/20 23 01/15/2023 FREE TRIIO DOTHY KAMALJIT E (FT3) FT3 2.7 pg/mL 1.5-4. 1 Not Available [facility] (Main Location) [facility] ,, [place], [address], 01/16/2023 14:21:26 01/16/20 23 01/15/2023 FREE THYRO XINE (FT4) FT4 0.88 NG/dL 0.93-1 .70 low Not Available [facility] (Main Location) [address] ,, [place], [address], 01/16/2023 14:21:26 01/16/20 23 01/15/2023 THYRO ID STIMU LATIN G HORMO NE (TSH) TSH 1.77 ?IU/m L 0.27-4 .20 Not Available [facility] (Main Location) [address] ,, [place], [address], 01/16/2023 14:21:27 03/31/20 24 03/31/2024 HEMOG LOBIN A1C hemoglobin A1C 6.3 % 4.8-5. 6 high BRITTNEY L RANGE BASED ON DIANNE COL 2 (DCCT /NGSP ): Non-D iabet ic: < 5.7% Pre-D iabet es: 5.7 - 6.4% Diabe siri: => 6.5% GLYCE RAH CONTR OL: < 7.0% Not Available [facility] [address], [place], [address], 03/31/2024 19:58:01 03/31/20 24 03/31/2024 HEMOG LOBIN A1C estimated average glucose 133 Not Available [facility] [address], [place], [address], 03/31/2024 19:58:01 03/31/20 24 03/31/2024 CBC WITH AUTO- DIFFE RENTI AL WBC 10.7 10*3/ uL 3.4-10 .8 Not Available [facility] [address], [place], [address], 03/31/2024 19:58:02 03/31/20 24 03/31/2024 CBC WITH AUTO- DIFFE RENTI AL RBC 5.94 10*6/ uL 4.20-5 .80 high Not Available [facility] [address], [place], [address], 03/31/2024 19:58:02 03/31/20 24 03/31/2024 CBC WITH AUTO- DIFFE RENTI AL HGB 17.3 g/dL 12.6-1 7.7 Not Available [facility] [address], [place], [address], 03/31/2024 19:58:02 03/31/2003/31/2024 CBC WITH AUTO- DIFFE RENTI AL HCT 50.1 % 37.5-5 1.0 Not Available [facility] [address], [place], [address], 03/31/2024 19:58:02 03/31/20 24 03/31/2024 CBC WITH AUTO- DIFFE RENTI AL MCV 84 fL 79-97 Not Available [facility] [address], [place], [address], 03/31/2024 19:58:02 03/31/20 24 03/31/2024 CBC WITH AUTO- DIFFE RENTI AL MCH 29.1 pg 26.6-3 3.0 Not Available [facility] [address], [place], [address], 03/31/2024 19:58:02 03/31/20 24 03/31/2024 CBC WITH AUTO- DIFFE RENTI AL MCHC 34.5 g/dL 31.5-3 5.7 Not Available [facility] [address], [place], [address], 03/31/2024 19:58:02 03/31/20 24 03/31/2024 CBC WITH AUTO- DIFFE RENTI AL RDW 13.4 % 11.5-1 4.5 Not Available [facility] [address] [facility] [address], [place], [address], 03/31/2024 19:58:02 03/31/20 24 03/31/2024 CBC WITH AUTO- DIFFE RENTI AL platelets 265 10*3/ uL 150-40 0 Not Available [facility] [address] [facility] [address], [place], [address], 03/31/2024 19:58:02 03/31/20 24 03/31/2024 CBC WITH AUTO- DIFFE RENTI AL MPV 9 fL 9-13 Not Available [facility] [address] [facility] [address], [place], [address], 03/31/2024 19:58:02 03/31/20 24 03/31/2024 CBC WITH AUTO- DIFFE RENTI AL neutrophils 64.9 % 40.0-7 4.0 Not Available [facility] [address] [facility] [address], [place], [address], 03/31/2024 19:58:02 03/31/20 24 03/31/2024 CBC WITH AUTO- DIFFE RENTI AL absolute neutrophils 6.93 10*3/ uL 1.40-7 .00 Not Available [facility] [address] [facility] [address], [place], [address], 03/31/2024 19:58:02 03/31/20 24 03/31/2024 CBC WITH AUTO- DIFFE RENTI AL lymphocytes 23.2 % 14.0-4 6.0 Not Available [facility] [address] [facility] [address], [place], [address], 03/31/2024 19:58:02 03/31/20 24 03/31/2024 CBC WITH AUTO- DIFFE RENTI AL absolute lymphocytes 2.47 10*3/ uL 0.70-3 .10 Not Available [facility] [address] [facility] [address], [place], [address], 03/31/2024 19:58:02 03/31/20 24 03/31/2024 CBC WITH AUTO- DIFFE RENTI AL monocytes 10.3 % 4.0-12 .0 Not Available [facility] [address] [facility] [address], [place], [address], 03/31/2024 19:58:02 03/31/20 24 03/31/2024 CBC WITH AUTO- DIFFE RENTI AL absolute monocytes 1.10 10*3/ uL 0.10-0 .90 high Not Available [facility] [address] [facility] [address], [place], [address], 03/31/2024 19:58:02 03/31/20 24 03/31/2024 CBC WITH AUTO- DIFFE RENTI AL eosinophils 0.4 % 0.0-5. 0 Not Available [facility] [address] [facility] [address], [place], [address], 03/31/2024 19:58:02 03/31/20 24 03/31/2024 CBC WITH AUTO- DIFFE RENTI AL absolute eosinophils 0.04 10*3/ uL 0.00-0 .40 Not Available [facility] [address] [facility] [address], [place], [address], 03/31/2024 19:58:02 03/31/20 24 03/31/2024 CBC WITH AUTO- DIFFE RENTI AL basophils 0.6 % 0.0-3. 0 Not Available [facility] [address] [facility] [address], [place], [address], 03/31/2024 19:58:02 03/31/20 24 03/31/2024 CBC WITH AUTO- DIFFE RENTI AL absolute basophils 0.06 10*3/ uL 0.00-0 .20 Not Available [facility] [address] [facility] [address], [place], [address], 03/31/2024 19:58:02 03/31/20 24 03/31/2024 CBC WITH AUTO- DIFFE RENTI AL imm. gran. 0.6 % 0.0-2. 0 Not Available [facility] [address] [facility] [address], [place], [address], 03/31/2024 19:58:02 03/31/20 24 03/31/2024 CBC WITH AUTO- DIFFE RENTI AL abs. imm. gran. 0.06 10*3/ uL 0.00-0 .10 Not Available [facility] [address] [facility] [address], [place], [address], 03/31/2024 19:58:02 03/31/20 24 03/31/2024 COMPR EHENS ALEXANDRO METAB OLIC PANEL sodium 138 mmol/ L 134-14 4 Not Available [facility] [address] [facility] [address], [place], [address], 03/31/2024 19:58:02 03/31/20 24 03/31/2024 COMPR EHENS ALEXANDRO METAB OLIC PANEL potassium 3.7 mmol/ L 3.5-5. 2 Not Available [facility] [address] [facility] [address], [place], [address], 03/31/2024 19:58:02 03/31/20 24 03/31/2024 COMPR EHENS ALEXANDRO METAB OLIC PANEL chloride 95 mmol/ L 98-107 low Not Available [facility] [address] [facility] [address], [place], [address], 03/31/2024 19:58:02 03/31/20 24 03/31/2024 COMPR EHENS ALEXANDRO METAB OLIC PANEL carbon dioxide (co2) 29.0 mmol/ L 18.0-2 9.0 Not Available [facility] [address] [facility] [address], [place], [address], 03/31/2024 19:58:02 03/31/20 24 03/31/2024 COMPR EHENS ALEXANDRO METAB OLIC PANEL glucose 104 mg/dL 65-99 high Brittney l Fasti n - 99 mg/dL Impai red Fasti n - 125 mg/dL Diagn ostic of Diabe siri: => 126 mg/dL Ameri can Diabe siri [facility] iatio n, 2007 Not Available [facility] [address] [facility] [address], [place], [address], 03/31/2024 19:58:02 03/31/20 24 03/31/2024 COMPR EHENS ALEXANDRO METAB OLIC PANEL urea nitrogen (BUN) 20 mg/dL 6-20 Not Available [facility] [address] [facility] [address], [place], [address], 03/31/2024 19:58:02 03/31/20 24 03/31/2024 COMPR EHENS ALEXANDRO METAB OLIC PANEL creatinine 0.96 mg/dL 0.76-1 .27 Not Available [facility] [address] [facility] [address], [place], [address], 03/31/2024 19:58:02 03/31/20 24 03/31/2024 COMPR EHENS ALEXANDRO METAB OLIC PANEL eGFR 92 mL/mi nute/ 1.73_ m2 >59 MDRD Study Equat ion: The calcu lated GFR is NOT appli cable for pedia tric (< 18 years old) and > 70 year old patie nts and patie nts that are NOT of stead [place] . Not Available [facility] [address] [facility] [address], [place], [address], 03/31/2024 19:58:02 03/31/20 24 03/31/2024 COMPR EHENS ALEXANDRO METAB OLIC PANEL calcium 9.5 mg/dL 8.7-10 .2 Not Available [facility] [address] [facility] [address], [place], [address], 03/31/2024 19:58:02 03/31/20 24 03/31/2024 COMPR EHENS ALEXANDRO METAB OLIC PANEL protein, total 7.2 gm/dL 6.4-8. 3 Not Available [facility] [address] [facility] [address], [place], [address], 03/31/2024 19:58:02 03/31/20 24 03/31/2024 COMPR EHENS ALEXANDRO METAB OLIC PANEL albumin 4.6 gm/dL 3.5-5. 2 Not Available [facility] [address] [facility] [address], [place], [address], 03/31/2024 19:58:02 03/31/20 24 03/31/2024 COMPR EHENS ALEXANDRO METAB OLIC PANEL bilirubin, total 0.80 mg/dL 0.00-1 .[address] [facility] [address] [facility] [address], [place], [address], 03/31/2024 19:58:02 03/31/20 24 03/31/2024 COMPR EHENS ALEXANDRO METAB OLIC PANEL alkaline phosphatase (ALP) 64 U/L 39-117 Not Available [facility] [address] [facility] [address], [place], [address], 03/31/2024 19:58:02 03/31/20 24 03/31/2024 COMPR EHENS ALEXANDRO METAB OLIC PANEL aspartate aminotransfe rase (AST) 25 U/L 0-40 Not Available [facility] [address] [facility] [address], [place], [address], 03/31/2024 19:58:02 03/31/20 24 03/31/2024 COMPR EHENS ALEXANDRO METAB OLIC PANEL alanine aminotransfe rase (ALT) 41 U/L 0-41 Not Available [facility] [address] [facility] [address], [place], [address], 03/31/2024 19:58:02 03/31/20 24 03/31/2024 COMPR EHENS ALEXANDRO METAB OLIC PANEL A/G ratio (calculated) 1.8 ratio 1.0-2. 7 Not Available [facility] [address], [place], [address], 03/31/2024 19:58:02 03/31/20 24 03/31/2024 COMPR EHENS ALEXANDRO METAB OLIC PANEL globulin (calculated) 2.6 gm/dL 1.5-3. 8 Not Available [facility] [address] [facility] [address], [place], [address], 03/31/2024 19:58:02 03/31/20 24 03/31/2024 COMPR EHENS ALEXANDRO METAB OLIC PANEL BUN/creatini ne ratio (calculated) 20.8 ratio 8.0-20 .0 high Not Available [facility] [address] [facility] [address], [place], [address], 03/31/2024 19:58:02 03/31/20 24 03/31/2024 COMPR EHENS ALEXANDRO METAB OLIC PANEL serum hemolysis index Normal index normal Not Available [facility] [address] [facility] [address] [address], [place], [address], 03/31/2024 19:58:02 03/31/20 24 03/31/2024 LIPID PANEL W/ CALC. LDL cholesterol, total 232 mg/dL 100-19 9 high Not Available [facility] [address] [facility] [address], [place], [address], 03/31/2024 19:58:02 03/31/20 24 03/31/2024 LIPID PANEL W/ CALC. LDL HDL cholesterol 39 mg/dL =>40 Not Available [facility] [address] [facility] [address], [place], [address], 03/31/2024 19:58:02 03/31/20 24 03/31/2024 LIPID PANEL W/ CALC. LDL LDL cholesterol (calculated) 166 mg/dL 0-99 high Not Available [facility] [address] [facility] [address], [place], [address], 03/31/2024 19:58:02 03/31/20 24 03/31/2024 LIPID PANEL W/ CALC. LDL triglyceride s 137 mg/dL 50-149 Not Available [facility] [address] [facility] [address], [place], [address], 03/31/2024 19:58:02 03/31/20 24 03/31/2024 LIPID PANEL W/ CALC. LDL chol/HDL ratio (calculated) 5.95 ratio 0.00-5 .00 high Not Available [facility] [address] [facility] [address], [place], [address], 03/31/2024 19:58:02 03/31/20 24 03/31/2024 LIPID PANEL W/ CALC. LDL VLDL cholesterol (calculated) 27 mg/dL 5-40 Not Available [facility] [address] [facility] [address], [place], [address], 03/31/2024 19:58:02 03/31/20 24 03/31/2024 PROST ATE-S PECIF IC ANTIG EN (PSA) , TOTAL (SCRE ENING ) prostate-spe cific antigen, total 0.3 NG/mL 0.0-4. 0 ECLIA METHO DOLOG Y. RESUL TS FROM THIS METHO D IS NOT HARSHA TIBLE WITH DIFFE RENT ASSAY METHO D AND CANNO T BE USED INTER PARKS EABLY . Not Available [facility] [address] [facility] [address], [place], [address], 03/31/2024 19:58:03 01/12/20 23 01/08/2023 US, neck No observ ation record ed. [facility] [address] [facility] [address], [place], [address], 01/27/2023 14:38:56 06/15/19 24 06/15/2023 XR, knee, 4 or more view No observ ation record ed. [facility] [address], [place], [address], 06/17/2023 13:18:07 Result Notes None recorded. Problems Name Problem SNOMED Code Status Onset Date Resolution Date Notes Provider Name and Address Organization Details Recorded Time Hyperlipid emia 12184985 Active 2017 Not Available [facility] 14:03:06 Full thickness rotator cuff tear 624433629 Active 2022 Rome Stanley MD [address], [place], [address] , [facility] 3 17:20:05 Impaired glucose tolerance 4610546 Active 2022 Rome Stanley MD [address], [place], [address] , [facility] 3 17:20:05 Essential hypertensi on 47519496 Active 2022 Rome Stanley MD [address], [place], [address] , [facility] 3 17:20:05 Neck swelling 027861687 Active 2022 Rome Stanley MD [address], [place], [address] , [facility] 3 19:34:14 Pain of left shoulder joint 3254057509688 9109 Active 2022 Rome Stanley MD [address], [place], [address] , [facility] 3 19:36:52 Pain of right shoulder joint 4682572968433 9100 Active 2022 Rome Stanley MD [address], [place], [address] , [facility] 3 19:37:59 Problem Notes None recorded. Procedures Surgical History Date Name Laterality Status Provider Name and Address Organization Details Recorded Time 8 Colonoscopy completed Rome Stanley MD [address], [place], [address], [facility] 12/03/2017 10:41:18 Back Surgery completed Rome Stanley MD [address], [place], [address], [facility] 11/01/2017 12:40:47 Carpal tunnel surgery completed Rome Stanley MD [address], [place], [address], [facility] 11/01/2017 12:41:07 Imaging Results None recorded. Procedure Notes None recorded. Medical Equipment None Reported. Allergies No known drug allergies Medications Name Sig Start Date Stop Date Status Note LastModified by Organization Details LastModified Time azithromyc in 250 mg tablet 09/08 completed Not Available Not Available Not Available alprazolam 1 mg tablet TAKE 1 TABLET BY MOUTH 1 HOUR PRIOR TO MRI SCAN 04/09 completed Not Available Not Available Not Available hydrocodon e 5 mg-acetami nophen 325 mg tablet TAKE 1 TABLET BY MOUTH EVERY 4 TO 6 HOURS NEEDED 10/04 completed Not Available Not Available Not Available prednisone 20 mg tablet 10/04 completed Not Available Not Available Not Available chlorthali done 25 mg tablet TAKE 1 TABLET EVERY DAY BY ORAL ROUTE IN THE MORNING. active Not Available Not Available No t Available sulfametho xazole 800 mg-trimeth oprim 160 mg tablet TAKE 1 TABLET BY MOUTH EVERY 12 HOURS 02/02 completed Not Available Not Available Not Available doxycyclin e monohydrat e 100 mg tablet 10/04 completed Not Available Not Available Not Available benzonatat e 100 mg capsule TAKE 1 CAPSULE BY MOUTH THREE TIMES A DAY NEEDED FOR COUGH 10/04 completed Not Available Not Available Not Available metoprolol succinate ER 25 mg tablet,ext ended release 24 hr Take 1 tablet every day by oral route. 04/09 completed -- pt has not filled since 09/23/22 Not Available Not Available Not Available methylpred nisolone 4 mg tablets in a dose pack 04/09 completed Not Available Not Available Not Available albuterol sulfate HFA 90 mcg/actuat ion aerosol inhaler INHALE 1 PUFF BY MOUTH 4 TIMES A DAY NEEDED FOR SHORTNES S OF BREATH OR WHEEZING active Not Available Not Available No t Available rosuvastat in 10 mg tablet TAKE 1 TABLET BY MOUTH EVERY DAY active Not Available Not Available No t Available Vitals Date Recorded Body height Heart rate Respiratory rate Body temperature Systolic blood pressure Diastolic blood pressure Provider Name and Address Organization Details Last Updated DateTime 4 170.18 cm 84 /min 16 /min 98.3 [degF] 166 mm[Hg] 91 mm[Hg] [facility] 12[facility]44 Date Recorded Body height Heart rate Respiratory rate Body temperature Body mass index (BMI) Body weight Systolic blood pressure Diastolic blood pressure Provider Name and Address Organization Details Last Updated DateTime 4 170.18 cm 83 /min 16 /min 97.8 [degF] 31.2 kg/m2 16395.8 8 g 136 mm[Hg] 93 mm[Hg] [facility] 08:31:55 Date Recorded Systolic blood pressure Diastolic blood pressure Provider Name and Address Organization Details Last Updated DateTime 12/30/2022 137 mm[Hg] 88 mm[Hg] Rome Stanley MD [address], [place], [address] 12/30/2022 19:46:34 Date Recorded Body height Respiratory rate Body mass index (BMI) Body weight Body temperature Heart rate Provider Name and Address Organization Details Last Updated DateTime 3 170.18 cm 16 /min 31.5 kg/m2 18889.0 7 g 98.4 [degF] 82 /min [facility] 3 19:01:04 Date Recorded Body height Heart rate Respiratory rate Body temperature Body mass index (BMI) Body weight Systolic blood pressure Diastolic blood pressure Provider Name and Address Organization Details Last Updated DateTime 4 170.18 cm 81 /min 16 /min 97.7 [degF] 32.9 kg/m2 49024.4 g 142 mm[Hg] 107 mm[Hg] [facility] 09:10:10 Date Recorded Systolic blood pressure Diastolic blood pressure Provider Name and Address Organization Details Last Updated DateTime 04/14/2024 121 mm[Hg] 78 mm[Hg] Rome Stanley MD [address], [place], [address], [facility] 04/14/2024 14:44:19 Date Recorded Body height Heart rate Respiratory rate Body temperature Body mass index (BMI) Body weight Provider Name and Address Organization Details Last Updated DateTime 4 170.18 cm 81 /min 16 /min 97.8 [degF] 32.4 kg/m2 83315.6 2 g Janki Adkins [facility] 4 13:52:22 Social History Question Answer Notes LastModified by Organizat ion Details LastModified Time Tobacco Smoking Status Former Smoker Quit in 2017. (more of a social smoker) [facility] 12:30:31 Do You Have An Advance Directive? No Information not available 11/01/2017 Do You Wear A Helmet When Biking? No Information not available 09/08/2021 Are You Blind Or Do You Have Difficulty Seeing? No Information not available 09/08/2021 What Is Your Level Of Caffeine Consumption? Moderate 2 Cups Per Day [email or web address] Information not available 09/29/2017 How Much Tobacco Do You Chew? 1/day One Dip Per Week Information not available 09/29/2017 What Is Your Code Status? Full Code Information not available 11/01/2017 In The 14 Days Before Symptom Onset, Have You Had Close Contact With A Laboratory-confir med COVID-19 While That Case Was Ill? No Information not available 09/08/2021 In The 14 Days Before Symptom Onset, Have You Had Close Contact With A Person Who Is Under Investigation For COVID-19 While That Person Was Ill? No Information not available 09/08/2021 Have You Been To An Area Known To Be High Risk For COVID-19? Yes Information not available 09/08/2021 Are You Deaf Or Do You Have Serious Difficulty Hearing? No Information not available 09/08/2021 What Type Of Diet Are You Following? REGULAR Information not available 11/01/2017 Which Illicit Or Recreational Drugs Have You Used? None [email or web address] Information not available 09/29/2017 Have You Processed Blood Or Body Fluids From An Ebola Virus Disease Patient Without Appropriate PPE? No Information not available 09/08/2021 Do You Reside In Or Have You Traveled To An Area Where Ebola Virus Transmission Is Active? No Information not available 09/08/2021 What Is The Highest Grade Or Level Of School You Have Completed Or The Highest Degree You Have Received? [id number] Information not available 09/08/2021 Have There Been Any Changes To Your Family Or Social Situation? No Information no t available 09/08/2021 What Is The Fluoride Status Of Your Home? Non-fluorida alondra Information not available 09/08/2021 Are There Any Guns Present In Your Home? Yes Information not available 09/08/2021 Hard Of Hearing Or Deaf In One Or Both Ears? No [email or web address] Information not available 09/29/2017 Do You Use Insect Repellent Routinely? No Information not available 09/08/2021 Legally Blind In One Or Both Eyes? No [email or web address] Information no t available 09/29/2017 Live Alone Or With Others? With Others [email or web address] Information not available 09/29/2017 Marital Status Informatio n not available 09/29/2017 What Was The Date Of Your Most Recent Tobacco Screening? 04/14/2024 Information not available 04/14/2024 How Many Children Do You Have? 1 Information not available 09/08/2021 Do You Have Any Pets? Yes Information not available 09/08/2021 Do You Use Protection During Sex? No Information not available 09/08/2021 What Is Your Relationship Status? Information not available 09/08/2021 Do You Use Your Seat Belt Or Car Seat Routinely? Yes Information not available 09/08/2021 Are You Sexually Active? Yes Information not available 09/08/2021 Do You Have Smoke And Carbon Monoxide Detectors In Your Home? Yes Information not available 09/08/2021 At What Age Did You Start Smoking Tobacco? 43 Information not available 11/01/2017 Are You Passively Exposed To Smoke? No Information no t available 09/08/2021 How Much Tobacco Do You Smoke? 1 PPW [email or web address] Information not available 11/01/2017 Do You Use Sunscreen Routinely? No Information not available 09/08/2021 How Many Years Have You Smoked Tobacco? 3.5 Information not available 11/01/2017 Do You Have Difficulty Walking Or Climbing Stairs? No Information not available 09/08/2021 Sex: Male Functional Status Question Answer Note LastModified by Organization Details LastModified Time What is your level of alcohol consumption? Moderate 5 beer 2 times per week Information not available 09/23/2022 Are you currently employed? Yes [email or web address] Information not available 09/29/2017 Do you have transportation difficulties? No Information not available 09/08/2021 Do you have difficulty doing errands alone? No Information not available 09/08/2021 Are you able to care for yourself? 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 No Information not available 09/08/2021 What is your exercise level? None Information not available 11/01/2017 Mental Status Question Answer Note LastModified by Organizat ion Details LastModified Time Do you feel stressed (tense, restless, nervous, or anxious, or unable to sleep at night)? [id number] Information not available 09/08/2021 Do you have difficulty concentrating, remembering or making decisions? No Information no t available 09/08/2021 Family History Relationship Description Onset Age of this Age Resolved Age Notes LastModified by Organization Details LastModified Time Maternal Grandfather Myocardial infarction -- dx'd in his early 60s Not available 11/01/2017 12:38:16 Maternal Grandmother Malignant tumor of breast 48 --dx'd at around 48 y/o Not available 11/01/2017 12:38:56 Medical History No medical history recorded. Immunizations Vaccine Type Date Status Note Provider Nam e and Address Organization Details Recorded Time COVID-19, mRNA, LNP-S, PF, 30 mcg/0.3 mL dose, alexei-sucrose 07/23/2020 completed Rome Stanley MD [address], [place], [address], [facility] 03/27/2022 04:00:13 COVID-19, mRNA, LNP-S, PF, 30 mcg/0.3 mL dose, alexei-sucrose 08/18/2020 completed Rome Stanley MD [address], [place], [address], [facility] 03/27/2022 04:00:13 COVID-19, mRNA, LNP-S, PF, 100 mcg/0.5mL dose or 50 mcg/0.25mL dose 02/22/2021 completed Rome Stanley MD [address], [place], [address], [facility] 03/27/2022 04:00:13 COVID-19, mRNA, LNP-S, bivalent, PF, 30 mcg/0.3 mL dose 03/21/2022 completed Rome Stanley MD [address], [place], [address], [facility] 03/27/2022 04:00:13 Past Encounters Encounter ID Performer Location Encounter Start Date Encounter Closed Date Diagnosis/Indication Diagnosis SNOMED-CT Code Diagnosis ICD10 Code Diagnosis Note [id number] RACHEL LOPEZ APN [facility], [facility] [address] [place] [address] 09/29/2017 14:00:01 09/29/2017 15:52:03 Umbilical hernia 611428395 K42.9 has been present x 3 years -last week lifted an object that was too heavy -- felt immediate discomfort -denies pain at present -soreness with bending or lifting - Screening for malignant neoplasm of colon 655327204 Z12.11 Screening procedure 2012 5006 Z13.9 Hyperlipid emia screening 620633689 Z13.220 Snoring 33294061 R06.83 Body mass index 30+ - obesity 870312144 Z68.32 [id number] Rome Stanley MD [facility], [facility] [address] [place] [address] 11/01/2017 11:34:10 11/01/2017 13:07:51 Adult health examination 783171652 Z00.00 Umbilical hernia 2533880 07 K42.9 has been present x 3 years -last week lifted an object that was too heavy -- felt immediate discomfort -soreness with bending or lifting - Screening for malignant neoplasm of colon 134487902 Z12.11 Snoring 34618961 R06.83 -- pt does not want to do sleep study testing yet; he will let me know when he is ready. Body mass index 30+ - obesity 686662119 Z68.32 -- advised weight loss-- Patient's BMI today is 32.4 (ideal is between 20-25). Hyperlipidemia 99250533 E78.5 -- Recheck lipid panel around 12/30/17 Screening for malignant neoplasm of prostate 752301213 Z12.5 -- Last PSA level 0.3 on 10/06/17 Active or passive immunization 662074232 Z23 Left lower quadrant pain 679566323 R10.32 [id number] Rome Stanley MD [facility] [address] [place] [address] 09/08/2021 13:52:33 09/08/2021 15:57:47 Falling injury 369332571 W19.XXXD The x-ray of the right humerus was negative for fracture.M ay need an MRI for further evaluation for rotator cuff tear Essential hypertension 91086492 I10 Hyperlipidemia 23939335 E78.5 Screening for malignant neoplasm of colon 682570823 Z12.11 -- gastroente rologist Dr Lam sommers d repeating colonoscop y 3 years from 12/02/17 due to Adenomatou s Polyps Screening for malignant neoplasm of prostate 872623839 Z12.5 -- Last PSA level 0.3 on 10/06/17-- pt has FH (Dad) with prostate cancer Diabetes m ellitus screening 334019892 Z13.1 -- has FH of DM Hepatitis C screening 41 4899223 Z11.59 Active or passive immunization 541656022 Z23 Body mass index 30+ - obesity 728865120 Z68.39 -- will advised weight loss-- Patient's BMI today is 32.4 (ideal is between 20-25). [id number] Rome Stanley MD [place] [employer] [address] [place] [address] 10/14/2021 10:36:41 10/14/2021 12:26:31 Full thickness rotator cuff tear 360962143 M75.121 Adult heal th examination 558521105 Z00.00 Hyperlipidemia 94749912 E78.5 Impaired g lucose tolerance 6408215 R73.03 (A1c level of 6.2 on 10/08/21) -- you will need to limit Carbohydra siri intake to 40 gram per meal & also a maximum of 120 grams a day. -- Examples of Carbohydra siri are: ice-cream, sweet sugar treats, rice, potatoes, sweet potatoes (yams), bananas, corn products (popcorn, corn muffin, corn bread, cornflakes , corn ), oats, flour products (pasta, bread, bagel, muffins, donuts, biscuits, cookies, crackers, pancakes, waffle, cakes, pies &/or Alcohol. Body mass index 30+ - obesity 003710939 Z68.31 -- will advised weight loss; pt lost 2 # since his last visit-- Patient's BMI today is 31.3 (ideal is between 20-25). Hepatitis C screening 41 8168440 Z11.59 -- tested negative for Hep C on 10/08/21 Active or passive immunization 331793426 Z23 Screening for malignant neoplasm of colon 346207146 Z12.11 -- gastroente rologist Dr Lam luis repeating colonoscop y 3 years from 12/02/17 due to Adenomatou s Polyps Screening for malignant neoplasm of prostate 754466427 Z12.5 -- Last PSA level 0.3 (10/06/17) --> 0.4 (10/08/21)- - pt has FH (Dad) with prostate cancer Essential hypertension 55715237 I10 [id number] Rome Stanley MD [employer] [employer] [address] [place] [address] 11/27/2021 12:14:36 11/27/2021 14:12:04 Spider bite wound 898661659 T14.8XXD -- on Doxycyclin e & Prednisone -- see photo-- Doxycyclin e could cause sunburn to occur more easily. Avoid sunlight or tanning beds.-- For 10 days do not take iron supplement s, multivitam ins, antacids, laxatives or calcium supplement s while on Doxycyclin e.-- avoid dairy, like Milk (milk on cereal, cream on coffee, milk shakes, heavy cream or sour cream, gravy; creamy salad dressing like [place], Ranch, Blue cheese); cheese (cheese on burgers, Pizza, lasagna, chani, parmeasan, etc); ice-cream, yogurt.-- avoid Soy milk, almond milk, oat milk, Calcium fortified orange juice. [id number] Rome Stanley MD [facility] [address] [facility] [address] [place] [address] 12/04/2021 10:00:40 12/04/2021 11:24:33 Spider bite wound 735889060 T14.8XXD -- pt finished Doxycyclin e & Prednisone -- Doxycyclin e could cause sunburn to occur more easily. Avoid sunlight or tanning beds.-- For 10 days do not take iron supplement s, multivitam ins, antacids, laxatives or calcium supplement s while on Doxycyclin e.-- avoid dairy, like Milk (milk on cereal, cream on coffee, milk shakes, heavy cream or sour cream, gravy; creamy salad dressing like [place], Ranch, Blue cheese); cheese (cheese on burgers, Pizza, lasagna, chani, parmeasan, etc); ice-cream, yogurt.-- avoid Soy milk, almond milk, oat milk, Calcium fortified orange juice.-- see photo [id number] Rome Stanley MD [facility] [address] [facility] [address] [place] [address] 09/23/2022 16:21:42 09/23/2022 17:47:05 Adult health examination 060457461 Z00.00 -- check lab(s) within 2 days from 09/23/22 Essential hypertension 36692863 I10 -- check lab(s) within 2 days from 09/23/22 Full thick ness rotator cuff tear 144108782 M75.121 -- pt does not want to have any surgery Hyperlipidemia 55335467 E78.5 -- check lab(s) within 2 days from 09/23/22 Impaired g lucose tolerance 6396280 R73.03 (A1c level of 6.2 on 10/08/21)-- you will need to limit Carbohydra siri intake to 40 gram per meal & also a maximum of 120 grams a day.-- Examples of Carbohydra siri are: ice-cream, sweet sugar treats, rice, potatoes, sweet potatoes (yams), bananas, corn products (popcorn, corn muffin, corn bread, cornflakes , corn ), oats, flour products (pasta, bread, bagel, muffins, donuts, biscuits, cookies, crackers, pancakes, waffle, cakes, pies &/or Alcohol.-- check lab(s) within 2 days from 09/23/22 Body mass index 30+ - obesity 616828273 Z68.31 -- will advised weight loss; pt gained 11 # since his last visit-- Patient's BMI today is 31.6 (ideal is between 20-25). Hepatitis C screening 41 9574752 Z11.59 -- tested negative for Hep C on 10/08/21 Active or passive immunization 908760341 Z23 Screening for malignant neoplasm of colon 305126989 Z12.11 -- gastroente rologist Dr Lam luis repeating colonoscop y 3 years from 12/02/17 due to Adenomatou s Polyps Screening for malignant neoplasm of prostate 367392432 Z12.5 -- Last PSA level 0.3 (10/06/17) --> 0.4 (10/08/21)- - pt has FH (Dad) with prostate cancer HIV screening 109258172 Z11.4 -- check lab(s) within 2 days from 09/23/22 [id number] Rome Stanley MD [facility] [address] [place] [address] 12/30/2022 16:47:51 12/30/2022 19:52:02 Neck swelling 921828771 R22.1 -- check lab(s) within 10 days from 12/30/22 Pain of le ft shoulder joint 4130506390 0613709 M25.512 (occured 3 days ago)-- spontaneou sly resolved w/ full ROM and motor 5/5 w/o deficit. Full thick ness rotator cuff tear 145772467 M75.121 (Rt shoulder) -- pt does not want to have any surgery Essential hypertension 85503890 I10 -- controlled Hyperlipidemia 10079627 E78.5 Impaired g lucose tolerance 7512501 R73.03 (A1c level of 6.2 on 10/08/21)-- you will need to limit Carbohydra siri intake to 40 gram per meal & also a maximum of 120 grams a day.-- Examples of Carbohydra siri are: ice-cream, sweet sugar treats, rice, potatoes, sweet potatoes (yams), bananas, corn products (popcorn, corn muffin, corn bread, cornflakes , corn ), oats, flour products (pasta, bread, bagel, muffins, donuts, biscuits, cookies, crackers, pancakes, waffle, cakes, pies &/or Alcohol.-- check lab(s) within 2 days from 09/23/22 Body mass index 30+ - obesity 022206862 Z68.31 -- will advised weight loss; pt lost 1 # since his last visit-- Patient's BMI today is 31.5 (ideal is between 20-25). [id number] Rome Stanley MD [facility], [facility] [address] [place] [address] 06/17/2023 11:16:54 06/17/2023 13:32:29 Swelling of knee joint 779421055 M25.469 (left knee) -- xrays at [facility] on 06/15/23 showed no Fx, but has small knee effusion, and Moderate tricompart ment osteoarthr itis-- pt was issued medrol lisa and pain has improved Neck swelling 666505861 R22.1 -- resolved-- soft tissue u/s on 01/08/23 was unrevealin g. Full thick ness rotator cuff tear 311843249 M75.121 (Rt shoulder) -- pt does not want to have any surgery-- doing well Essential hypertension 91280500 I10 -- controlled -- check lab(s) around 07/14/23 Hyperlipidemia 97237415 E78.5 -- check lab(s) around 07/14/23 Impaired g lucose tolerance 7885569 R73.03 (A1c level of 6.2 on 10/08/21)-- you will need to limit Carbohydra siri intake to 40 gram per meal & also a maximum of 120 grams a day.-- Examples of Carbohydra siri are: ice-cream, sweet sugar treats, rice, potatoes, sweet potatoes (yams), bananas, corn products (popcorn, corn muffin, corn bread, cornflakes , corn ), oats, flour products (pasta, bread, bagel, muffins, donuts, biscuits, cookies, crackers, pancakes, waffle, cakes, pies &/or Alcohol.-- check lab(s) around 07/14/23 Body mass index 30+ - obesity 004785929 Z68.31 -- will advised weight loss; pt lost 1 # since his last visit-- Patient's BMI today is 31.5 (ideal is between 20-25). [id number] Rome Stanley MD [employer] [address] [place] [address] 06/29/2023 08:24:21 06/29/2023 09:01:30 Pain of left knee joint 9462290882 95414 M25.562 -- pt felt improved but unsure of climbing ladder (does kelly winn for the [facility]). [id number] Rome Stanley MD [employer] [facility] [address] [place] [address] 03/24/2024 08:34:19 03/24/2024 09:54:19 Swelling of knee joint 224114121 M25.469 (left knee) -- xrays at [facility] on 06/15/23 showed no Fx, but has small knee effusion, and Moderate tricompart ment osteoarthr itis-- pt was issued medrol lisa and pain has improved'- - today pt reported that his left knee seldom gives him problem Essential hypertension 69394772 I10 -- controlled -- check lab(s) today Hyperlipidemia 31757545 E78.5 -- check lab(s) within 5 days from 03/24/24 Impaired g lucose tolerance 3611098 R73.03 (A1c level of 6.2 on 10/08/21)-- you will need to limit Carbohydra siri intake to 40 gram per meal & also a maximum of 120 grams a day.-- Examples of Carbohydra siri are: ice-cream, sweet sugar treats, rice, potatoes, sweet potatoes (yams), bananas, corn products (popcorn, corn muffin, corn bread, cornflakes , corn ), oats, flour products (pasta, bread, bagel, muffins, donuts, biscuits, cookies, crackers, pancakes, waffle, cakes, pies &/or Alcohol.-- check lab(s) within 5 days from 03/24/24 Body mass index 30+ - obesity 469862518 Z68.32 -- will advised weight loss; pt gained 11 # since his last visit-- Patient's BMI today is 32.9 (ideal is between 20-25). Screening for malignant neoplasm of prostate 752030751 Z12.5 -- Last PSA level 0.3 (10/06/17) --> 0.4 (10/08/21)- - pt has FH (Dad) with prostate cancer Active or passive immunization 749643142 Z23 Erythrocytosis 840034048 D75.1 [id number] Rome Stanley MD [facility], [facility] [address] [facility] [address] [place] [address] 04/14/2024 12:41:13 04/14/2024 14:44:17 Hyperlipidemia 22265136 E78.5 -- check lab(s) within 5 days from 03/24/24 Essential hypertension 78888869 I10 -- controlled -- check lab(s) today Body mass index 30+ - obesity 596695717 Z68.32 -- will advised weight loss; pt lost 3 # since his last visit-- Patient's BMI today is 32.4 (ideal is between 20-25). Health Concerns Section Related Observation LastModified by Organization Mary chaudhary LastModified Time None Recorded Concern Status LastModified by Organization Details LastModified Time None Recorded Advance Directives Directive N: Payers Encounter Date Sequence Insurance Name Policy Number Policy Mccabe Covered Member ID Mccabe Member ID Guarantor Name 12/30/2022 1 [facility] [id number] [facility] [id number] [facility] 06/17/2023 1 [facility] [id number] [facility] [id number] [facility] 06/29/2023 1 [facility] [id number] [facility] [id number] [facility] 03/24/2024 1 [facility] [id number] [facility] [id number] [facility] 04/14/2024 1 [facility] [id number] [facility] [id number] [facility] Notes Date Note Type Note Provider Name and Address Organization Details Recorded Time 12/30/2022 text/html Pt comes in for neck swelling. This was discovered yesterday while shaving.Pt has no pain or discomfort, f/c, n/v, swallowing difficulty. Rome Stanley MD [address], [place], [address], [facility] 12/30/2022 19:55:41 06/17/2023 text/html Pt comes in for urgent care f/u of left knee pain -- improved a lot w/ [facility] l[facility] [place]. No 'giving out' or locking. Sx started when pt slipped on carpet & his foot was stopped by the dry wall but his left knee continued forward. This started on Wednesday06/13/23 at 3 AM. Rome Stanley MD [address], [place], [address], [facility] 06/17/2023 13:30:33 06/29/2023 text/html Pt comes in for work release for full duty without restriction. Pt feels he has improved. He has no pain, swelling, 'giving-out' or 'locking', numbness/tingling or focal weakness, or unsteady gait. He is using a soft brace and has been very 'haider' w/ his activity. Rome Stanley MD [address], [place], [address], [facility] 06/29/2023 09:00:49 03/24/2024 text/html Pt comes in for f/u of HTN, HLD, pre-DM, knee pain (no problem or sx lately), and weight monitoring. Pt feels well and has no c/o. Pt has no new sx and no increasing sx. Patient denies any jaw or neck discomfort, left arm pain/left arm discomfort, chest discomfort/pain, diaphoresis, breathing symptoms/chest tightness, indigestion sx, n/v, any angina equivalent symptoms, etc. Rome Stanley MD [address] [facility] [address], [place], [address], [facility] 03/24/2024 09:54:01 04/14/2024 text/html Pt comes in for f/u of HTN, HLD, and weight management. Pt feels well and has no c/o. Pt has no new sx and no increasing sx. Patient denies any jaw or neck discomfort, left arm pain/left arm discomfort, chest discomfort/pain, diaphoresis, breathing symptoms/chest tightness, indigestion sx, n/v, any angina equivalent symptoms, etc. Rome Stanley MD [address] [facility] [address], [place], [address], [facility] 04/14/2024 14:44:37
[2024-10-30 13:40] VITALS: BP 142/72; PULSE 67; RESP 16; O2SAT 95
== END 2024-10-30 13:46 | disposition home or self-care (01) ==
PROVIDERS: Emergency Provider Registered Nurse; PCP Internal Medicine
DX: M47.816 Spondylosis without myelopathy or radiculopathy, lumbar region (principal); I10 Essential (primary) hypertension; E78.5 Hyperlipidemia, unspecified; Z98.1 Arthrodesis status
CPT/HCPCS: 72131; 73502; 96372; 99284; J1885; J7512